=== PATIENT | female | born 1955 | race Caucasian/White ===

== ENCOUNTER → 2017-01-13 | Outpatient (CLI) | payer OTHER ==
[~2017-01-13] MED LIST: ASPIRIN CHEWABL81 MG PO; ATENOLOL100 M1 PO; HYDR25T PO; LEVOFLOXACIN500 MG PO; LISINOPRIL20 MG PO; LYRICA200 M1 PO; Lidex 0.05% Cre15 GM PO; NORVASC10 MG PO; PREPLUS CA-FE1 EACH PO; PRILOSEC20 M1 PO; TRAMADOL HCL50 MG PO; ZOFRAN ODT4 MG SL
== END | disposition home or self-care (01) ==
LOC: LAB 14:30
DX: M25.571 Pain in right ankle and joints of right foot (principal); M25.532 Pain in left wrist; M25.531 Pain in right wrist

== ENCOUNTER → 2017-11-12 | Outpatient (CLI) | payer OTHER | END | disposition home or self-care (01) | LOC: MAMMO 14:50 | DX: Z12.31 Encounter for screening mammogram for malignant neoplasm of breast (principal); M17.0 Bilateral primary osteoarthritis of knee ==

== ENCOUNTER 2018-06-08 00:16 | Inpatient (IN) | payer MEDICARE ==
[~2018-06-08] VITALS: Ht 165.1 cm; Wt 81.7 kg
[2018-06-08] VITALS (7 sets, daily range): BP systolic 102–152; BP diastolic 47–85
--- NOTE | ~2018-06-08 | EKG ---
[place], [place] ELECTROCARDIOGRAM REPORT NAME: LARUA PINEDA UNIT #: [id number] ROOM: 525 DOCTOR: OCHOA DRAFT REPORT BIRTHDATE: [birth year] [facility] Test Date: 2018-06-08 Test Time: 00:55:28 Pat Name: LAURA PINEDA Department: Room: [facility] Gender: F Roll Bucker: Orville Kaiser : 1955 Requested By: BETH PLAZA PA-C Order Number: [id number] Reading MD: Orville Galeano MD Measurements Intervals [place] Rate: 93 P: 72 MN: 176 QRS: -5 QRSD: 107 T: 49 QT: 354 QTc: 441 Interpretive Statements Sinus rhythm Minimal ST depression, lateral leads Electronically Signed On 06-11-2018 15:36:49 PST by Orville Galeano MD CM:EKGRPT:ELECTROCARDIOGRAM REPORT [id number] BETH PLAZA PA-C EPIPHANY DRAFT REPORT BETH PLAZA PA-C
[2018-06-08 01:04] LABS: BASO # 0.1 10*3/uL (0.0-0.1); BASO % 1.1 % (0.0-1.0); EOS # 0.4 10*3/uL (0.0-0.4); EOS % 4.5 % (1.0-4.0); HEMOGLOBIN 14.5 g/dl (12.0-16.0); LYMPH # 3.5 10*3/uL (1.3-4.4); LYMPH % 38.3 % (27.0-41.0); MEAN CELL VOLUME 94.1 fl (81.0-99.0); MEAN CORPUSCULAR HGB 31.7 pg (27.0-31.0); MEAN CORPUSCULAR HGB CONC 33.7 g/dl (33.0-37.0); MEAN PLATELET VOLUME 9.5 fl (9.6-12.3); MONO # 0.6 10*3/uL (0.1-1.0); NEUT # 4.4 10*3/uL (2.3-7.9); PLATELET COUNT AUTOMATED 383 10*3/uL (130-400); RED BLOOD COUNT 4.57 10*6/uL (4.10-5.10); RED CELL DISTRI WIDTH 13.3 % (0-14.5)
--- NOTE | 2018-06-08 01:11 | NUR ---
PT PROVIDED WITH URINE CUP AND IS AWARE WE NEED URINE SAMPLE UNABLE TO PROVIDE ONE AT THIS TIME CALL LIGHT IN REACH
[2018-06-08 01:12] LABS: INTERNATIONAL NORM RATIO 1.1 (2.0-3.5)
[2018-06-08 01:20] LABS: ALBUMIN 3.9 gm/dl (3.1-4.5); ALKALINE PHOSPHATASE 101 U/L (45-117); BUN 59 mg/dl (7-24); CHLORIDE 109 mmol/L (98-107); CREATININE 2.18 mg/dL (0.55-1.02); POTASSIUM 3.7 mmol/L (3.5-5.1); SGOT/AST 15 IU/L (3-35); SGPT/ALT 23 U/L (12-78); SODIUM 136 mmol/L (136-145); TOTAL PROTEIN 8.5 gm/dL (6.4-8.2)
[2018-06-08 01:21] LABS: TROPONIN I < 0.015 ng/ml (<0.045)
[2018-06-08 01:43] LABS: BILIRUBIN NEGATIVE (NEGATIVE); BLOOD NEGATIVE (NEGATIVE); CLARITY SL CLOUDY (CLEAR); COLOR YELLOW (YELLOW); GLUCOSE NEGATIVE (NEGATIVE); KETONE NEGATIVE (NEGATIVE); LEUKO ESTERASE NEGATIVE (NEGATIVE); NITRITE NEGATIVE (NEGATIVE); SPECIFIC GRAVITY 1.015 (1.005-1.030); UROBILINOGEN 0.2 E.U./dl (0.2-1.0)
[2018-06-08 02:01] LABS: BACTERIA 2+; WBC 0-2 wbc/hpf (0-5)
--- NOTE | 2018-06-08 02:32 | NUR ---
A 62, admitted to 5E, under the services of LARRY Velasco DO with a diagnosis of ACUTE RENAL FAILURE. Chief complaint is ACUTE RENAL FAILURE. Patient arrived via bed from ER. Monitor applied. Initial assessment completed. Vital signs taken and recorded. LARRY VELASCO DO notified of admission to the unit. Orders received. See assessment for past medical history, medications and allergies. Patient and/or family oriented to unit. [address] visitation policy reviewed. Clothing/patient valuable form completed. KARENA MITCHELL
[2018-06-08] MEDS ORDERED: AMITRIPTYLINE25 MG PO (03:26)
[2018-06-08] MEDS ORDERED: AMLODIPINE BES2.5 MG PO (03:27)
[2018-06-08] MEDS ORDERED: OMEPRAZOLE D/R20 MG PO (03:29)
[2018-06-08] MEDS ORDERED: LISINOPRIL20 MG PO (03:29)
[2018-06-08] MEDS ORDERED: MELOXICAM15 MG PO (03:30)
[2018-06-08] MEDS ORDERED: VITAMIN D32000 UNI1 PO (03:31)
[2018-06-08] MEDS ORDERED: HYDROCHLOROTH12.5 M3 PO (03:32)
--- NOTE | 2018-06-08 04:48 | NUR ---
PT'S MED REC UPDATED PER THE HOME MEDICATION BOTTLES SHE BROUGHT IN WITH HER. DR. CONRAD CALLED DUE TO THE DIFFERENCE IN THE MEDICATION BOTTLES AND THE CLAIM HISTORY. WAS TOLD TO HAVE MED LIST FAXED FROM HER PHARMACY IN THE MORNING.
[2018-06-08 06:22] LABS: BASO # 0.1 10*3/uL (0.0-0.1); BASO % 1.2 % (0.0-1.0); EOS # 0.2 10*3/uL (0.0-0.4); EOS % 3.2 % (1.0-4.0); HEMATOCRIT 37.8 % (37.0-47.0); HEMOGLOBIN 12.8 g/dl (12.0-16.0); LYMPH # 3.4 10*3/uL (1.3-4.4); LYMPH % 44.6 % (27.0-41.0); MEAN CELL VOLUME 94.3 fl (81.0-99.0); MEAN CORPUSCULAR HGB 31.9 pg (27.0-31.0); MEAN CORPUSCULAR HGB CONC 33.9 g/dl (33.0-37.0); MEAN PLATELET VOLUME 9.3 fl (9.6-12.3); MONO # 0.5 10*3/uL (0.1-1.0); MONO % 6.6 % (3.0-9.0); NEUT # 3.4 10*3/uL (2.3-7.9); NEUT % 44.3 % (47.0-73.0); PLATELET COUNT AUTOMATED 344 10*3/uL (130-400); RED BLOOD COUNT 4.01 10*6/uL (4.10-5.10); RED CELL DISTRI WIDTH 13.3 % (0-14.5); WHITE BLOOD COUNT 7.6 10*3/uL (4.8-10.8)
[2018-06-08 06:26] LABS: ACT PARTIAL THROMBO TIME 25.9 SECONDS (20.8-31.5); INTERNATIONAL NORM RATIO 1.1 (2.0-3.5)
[2018-06-08 06:33] LABS: ALBUMIN 3.3 gm/dl (3.1-4.5); CREATININE 1.86 mg/dL (0.55-1.02); TOTAL PROTEIN 7.5 gm/dL (6.4-8.2)
[2018-06-08 06:40] LABS: FREE T4 1.01 ng/dl (0.76-1.46); THYROID STIM HORMONE (HS) 1.36 uIU/ml (0.358-4.75)
[2018-06-08 07:40] LABS: VITAMIN D, 25-HYDROXY 47.4 ng/mL (30-100)
--- NOTE | 2018-06-08 08:00 | NUR ---
PATIENT HOME MEDICATIONS TAKEN TO PHARMACY.
[2018-06-08] MEDS ORDERED: NORCO 5-325 TA1 EACH PO (08:02)
--- NOTE | 2018-06-08 10:45 | NUR ---
OK TO TAKE MONITOR OFF FOR PATIENT TO TAKE SHOWER PER DR. DURAN.
--- NOTE | 2018-06-08 11:28 | NUR ---
Shift chart check completed.
--- NOTE | 2018-06-08 13:04 | NUR ---
PATIENT STATES THAT ZOFRAN WAS EFFECTIVE FOR NAUSEA. WILL MONITOR.
--- NOTE | 2018-06-08 13:04 | NUR ---
PATIENT C/O NAUSEA AND STOMACH ACHE. ZOFRAN ADMINISTERED PRESCRIBED. WILL MONITOR FOR EFFECTIVENESS.
--- NOTE | 2018-06-08 13:12 | NUR ---
PATIENT STATES THAT SHE NEEDS HER PRILOSEC. DR DURAN CALLED AND TIME CHANGED FOR FIRST DOSE TO NOW. WILL MONITOR.
--- NOTE | 2018-06-08 19:10 | NUR ---
PT AWAKE AND WATCHING TV WHILE LYING IN BED. PT STATES THAT SHE DOES NOT HAVE ANY PAIN OR DISCOMFORT AT THIS TIME. SHE ALSO STATES THAT SHE FEELS THOUGH HER APPETITE IS IMPROVING SOMEWHAT.
--- NOTE | 2018-06-08 19:14 | NUR ---
24 HR CHART CHECK COMPLETE
[2018-06-09] VITALS: BP 115/56
[2018-06-09 07:21] LABS: ALBUMIN 2.9 gm/dl (3.1-4.5); CREATININE 1.46 mg/dL (0.55-1.02); POTASSIUM 4.1 mmol/L (3.5-5.1)
--- NOTE | 2018-06-09 07:47 | NUR ---
Shift chart check completed.
--- NOTE | 2018-06-09 08:00 | NUR ---
VS-STABLE. A+OX3, MARTIR, EQUAL SEAM CHECKER, COOPRATIVE, AND PLEASANT. HEART SOUNDS NORMAL. LUNG SOUNDS CLEAR. BSX4 ABD SOFT, NONTENDER, AND NONDISTENDED. POSTIVE PEDAL PULSES. CAP REFILL<3 SECONDS. NON TENTING SKIN TURGOR. PAIN 0/10 ON THE PAIN SCALE. SKIN WARM AND DRY. WHEN ASKED ABOUT LAST KNOW BOWEL MOVMENT PT STATES "IT'S BEEN ABOUT THREE DAYS". SHUKRI LANDERS SPCHRISTOFERCC
--- NOTE | 2018-06-09 08:00 | NUR ---
PATIENT AWAKE AND ALERT SITTING UP AND EATING BREAKFAST THIS MORNING. STATES THAT SHE IS FEELING MUCH BETTER TODAY. SEE ASSESSMENT. PATIENT HAS NO COMPLAINTS AT THIS TIME. BED ALARM ON AND CALL LIGHT WITHIN REACH.
[2018-06-09 08:09] VITALS: BP 129/67
[2018-06-09 10:15] VITALS: BP 132/64
--- NOTE | 2018-06-09 11:41 | NUR ---
CASE MANGER IN TO SEE PT COOPRATIVE AND PLEASANT WILL CONTINUE TO ASSESS. SHUKRI LANDERS SPNRCC
--- NOTE | 2018-06-09 11:41 | NUR ---
Fourth Hand in to talk to patient. Patient states lives at HOME with ALONE. There are BASEMENT steps in the home. Physician: NONE AT THIS TIME [facility]: [facility] Home health services: NONE Patient's level of ADLs: MINIMAL ASSIST Patient has working utilities: YES DME: CANE Follow-up physician's appointment after d/c: WILL BE MADE BY HOSPITALIST NURSE DIRECTOR ON [employer] Does patient want to access PORTAL?: NO Discharge plan PT STATES SHE LIVES ALONE IS MOSTLY INDEPENDENT IN CARE. STATES SHE HAS A CANE AT HOME BUT WOULD LIKE TO HAVE A WALKER, SHE ALSO WANTS HOME HEALTH. WILL CONTINUE TO FOLLOW. PT STATES SHE WILL HAVE A RIDE HOME. . FLAKITO SEQUEIRA
[2018-06-09 12:58] VITALS: BP 123/45
--- NOTE | 2018-06-09 13:30 | NUR ---
PHYSICAL THERAPY PAtient evaluated on 5, full evaluation to follow. Continue with PT as per plan of care with fall and acute debility precautions. Will require SNF but refuses. Home with home health Rn, PT and aides prn. PAtient is moderate complexity via chart review, tests and evaluation: 63142. Thank you for this referral. Vilma Vizcaino,PT
--- NOTE | 2018-06-09 15:49 | NUR ---
REFERRAL SENT TO [facility], [facility], THEY ARE CHECKING TO SEE IF THEY ACCEPT PT INSURANCE.
[2018-06-09 16:00] VITALS: BP 125/56
[2018-06-09 20:00] VITALS: BP 111/96; BP 128/72
--- NOTE | 2018-06-09 20:01 | NUR ---
24 HR chart check completed.
--- NOTE | 2018-06-09 21:00 | NUR ---
RESTING IN BED WATCHING TV WITH NO DISTRESS NOTED. RESPIRATIONS EASY. LUNGS DIMINISHED, CLEAR. PULSE OX 100% RA. OFFERED AND EDUCATED REAGRDING TEDS, DECLINED. IV FLUIDS INFUSING PER ORDER. CALL LIGHT WITHIN REACH. NO VOICED COMPLAINTS
[2018-06-10] VITALS: BP 138/60
--- NOTE | 2018-06-10 | NUR ---
SLEEPING. NO DISTRESS NOTED. RESPIRATIONS EASY. IV FLUID MAINTAINED. CALL LIGHT WITHIN REACH
--- NOTE | 2018-06-10 04:00 | NUR ---
AWAKE, WATCHING TV. NO DISTRESS NOTED. IV FLUIDS MAINTAINED. CALL LIGHT WITHIN REACH. NO VOICED COMPLAINTS
[2018-06-10 06:46] LABS: CREATININE 1.26 mg/dL (0.55-1.02); PHOSPHOROUS 2.6 mg/dL (2.5-4.9); POTASSIUM 4.1 mmol/L (3.5-5.1)
[2018-06-10 08:00] VITALS: BP 140/62
--- NOTE | 2018-06-10 08:00 | NUR ---
Patient resting quietly with no c/o discomfort. Respirations easy and regular. Vital signs stable. No overt distress. CYNDI RIDDLE R
--- NOTE | 2018-06-10 10:30 | NUR ---
PHYSICAL THERAPY Patient was resting comfortably in bed this am upon therapist arrival and reported she did not sleep well last night, including several bouts of low back cramps. Patient requested to be seen this pm so she can remain in bed and rest this morning. Will continue per POC as tolerated. Jack Bryant, CERTIFIED MEDICAL AIDE
[2018-06-10 12:00] VITALS: BP 144/71
--- NOTE | 2018-06-10 12:27 | NUR ---
PHYSICAL THERAPY CO-SIGN I approve of the Phyical Therapy notes written above. SHARA ARGUETA PT
[2018-06-10] MEDS ORDERED: SIMVASTATIN20 MG PO (13:07)
[2018-06-10] MEDS ORDERED: WALKER DEVI (13:08)
--- NOTE | 2018-06-10 13:10 | NUR ---
OT NOTE Pt was seen this P.M. 1:1 for 24 minute OT session. Upon arrival pt was sitting upright in recliner with no body alarm activated, pt identified by name and . Pt had no complaints at this time. Pt completed sit to stand transfer from chair level with SBA. Attempted to complete functional mobility around the room with use of AD and pt declined stating she is fine without it. Pt completed functional mobility into the bathroom with CGA with episodes of being unsteady requiring Marianne to correct. There she transferred on/off standard commode with CGA and use of grab bar for UE support. Pt then stood sink side while washing her hands with CGA, pt had LOB backwards at the sink while standing without UE support that required Marianne to correct. Pt then returned to the recliner where she completed BUE towel exercises over all planes of motion for 1 X 10 to increase UE strength needed for increased I in self care tasks and functional transfers. Pt was left sitting upright in recliner with call light in hand, tray table in place, and phone in reach. Continue with POC as able. OSITO Baldwin/Rochelle
--- NOTE | 2018-06-10 15:46 | NUR ---
ORDER FOR [facility].
--- NOTE | 2018-06-10 16:00 | NUR ---
Discharge instructions reviewed with patient/family. Patient receptive and verbalizes understanding. Follow-up care arranged. Written instructions given to patient/family. CYNDI RIDDLE
--- NOTE | 2018-06-10 16:05 | NUR ---
HOME MEDS RETURNED FROM PHARMACY.
--- NOTE | 2018-06-10 16:23 | NUR ---
[facility] INFORMED THAT PT IS BEING DISCHARGE TODAY.
--- NOTE | 2018-06-11 07:58 | NUR ---
OCCUPATIONAL THERAPY CO-SIGN I approve of the Occupational Therapy notes written above. HILDA REAVES OTR/Rochelle
== END 2018-06-10 16:00 | disposition home health service (06) | DRG 640 ==
LOC: ED 00:16 → EDHOLD 02:15 → 5E 02:15
PROVIDERS: Internal Medicine; Physician Assistant; ADMIT Internal Medicine
DX: E86.0 Dehydration (principal); N17.0 Acute kidney failure with tubular necrosis; E44.0 Moderate protein-calorie malnutrition; E87.2 Acidosis; E87.8 Other disorders of electrolyte and fluid balance, not elsewhere classified; R26.2 Difficulty in walking, not elsewhere classified; G62.9 Polyneuropathy, unspecified; E78.2 Mixed hyperlipidemia; E86.1 Hypovolemia; R00.0 Tachycardia, unspecified; R73.9 Hyperglycemia, unspecified; I10 Essential (primary) hypertension; K21.9 Gastro-esophageal reflux disease without esophagitis; F32.9 Major depressive disorder, single episode, unspecified; Z88.1 Allergy status to other antibiotic agents; Z88.0 Allergy status to penicillin; Z88.2 Allergy status to sulfonamides; Z90.710 Acquired absence of both cervix and uterus; Z87.891 Personal history of nicotine dependence; Z82.49 Family history of ischemic heart disease and other diseases of the circulatory system; Z79.899 Other long term (current) drug therapy; Z79.82 Long term (current) use of aspirin; Z68.29 Body mass index [BMI] 29.0-29.9, adult

== ENCOUNTER → 2018-06-19 | Outpatient (CLI) | payer MEDICARE ==
[~2018-06-19] MED LIST changes: +AMITRIPTYLINE25 MG PO; +AMLODIPINE BES2.5 MG PO; +HYDROCHLOROTH12.5 M3 PO; +MELOXICAM15 MG PO; +NORCO 5-325 TA1 EACH PO; +OMEPRAZOLE D/R20 MG PO; +SIMVASTATIN20 MG PO; +VITAMIN D32000 UNI1 PO; +WALKER DEVI
[2018-06-19 16:00] LABS: CREATININE 1.52 mg/dL (0.55-1.02); POTASSIUM 3.8 mmol/L (3.5-5.1)
== END | disposition home or self-care (01) ==
LOC: RESCLI 01:08 → LAB 01:08 → RESCLI 16:51
PROVIDERS: Student in an Organized Health Care Education/Training Program
DX: N17.9 Acute kidney failure, unspecified (principal); G72.9 Myopathy, unspecified

== ENCOUNTER → 2019-06-10 | Outpatient (CLI) | payer OTHER ==
[2019-06-10 17:13] LABS: BASO # 0.2 10*3/uL (0.0-0.1); BASO % 1.9 % (0.0-1.0); EOS # 0.2 10*3/uL (0.0-0.4); EOS % 2.7 % (1.0-4.0); HEMOGLOBIN 14.3 g/dl (12.0-16.0); LYMPH # 4.2 10*3/uL (1.3-4.4); LYMPH % 48.6 % (27.0-41.0); MEAN CELL VOLUME 94.9 fl (81.0-99.0); MEAN CORPUSCULAR HGB 31.6 pg (27.0-31.0); MEAN CORPUSCULAR HGB CONC 33.3 g/dl (33.0-37.0); MEAN PLATELET VOLUME 8.5 fl (9.6-12.3); MONO # 0.7 10*3/uL (0.1-1.0); MONO % 7.5 % (3.0-9.0); NEUT # 3.4 10*3/uL (2.3-7.9); NEUT % 39.1 % (47.0-73.0); PLATELET COUNT AUTOMATED 484 10*3/uL (130-400); RED BLOOD COUNT 4.53 10*6/uL (4.10-5.10); RED CELL DISTRI WIDTH 13.4 % (0-14.5); WHITE BLOOD COUNT 8.6 10*3/uL (4.8-10.8)
[2019-06-10 17:42] LABS: ALBUMIN 3.7 gm/dl (3.1-4.5); CREATININE 1.25 mg/dL (0.55-1.02); POTASSIUM 4.4 mmol/L (3.5-5.1)
[2019-06-10 17:50] LABS: TOTAL PROTEIN 8.3 gm/dL (6.4-8.2)
== END | disposition home or self-care (01) ==
LOC: LAB 16:30
PROVIDERS: Nurse Practitioner Primary Care
DX: E55.9 Vitamin D deficiency, unspecified (principal); I10 Essential (primary) hypertension; E78.1 Pure hyperglyceridemia; Z79.899 Other long term (current) drug therapy

== ENCOUNTER → 2019-06-24 | Outpatient (CLI) | payer OTHER ==
[2019-06-24 16:46] LABS: HEMATOCRIT 43.5 % (37.0-47.0); HEMOGLOBIN 14.1 g/dl (12.0-16.0); MEAN CELL VOLUME 95.4 fl (81.0-99.0); MEAN CORPUSCULAR HGB 30.9 pg (27.0-31.0); MEAN CORPUSCULAR HGB CONC 32.4 g/dl (33.0-37.0); MEAN PLATELET VOLUME 8.7 fl (9.6-12.3); PLATELET COUNT AUTOMATED 420 10*3/uL (130-400); RED BLOOD COUNT 4.56 10*6/uL (4.10-5.10); RED CELL DISTRI WIDTH 13.7 % (0-14.5); WHITE BLOOD COUNT 9.4 10*3/uL (4.8-10.8)
[2019-06-24 17:33] LABS: ATYPICAL LYMPHS 11 % (0-0); BASOPHILS 1 % (0-1); TOTAL CELLS COUNTED 100 #CELLS
[2019-06-24 17:34] LABS: PLATELET SUFFICIENCY NORMAL (NORMAL)
== END | disposition home or self-care (01) ==
LOC: LAB 16:09
PROVIDERS: Nurse Practitioner Primary Care
DX: D72.820 Lymphocytosis (symptomatic) (principal); Z79.899 Other long term (current) drug therapy

== ENCOUNTER → 2019-12-15 | Outpatient (CLI) | payer OTHER | END | disposition home or self-care (01) | LOC: MAMMO 11-30 08:00 | PROVIDERS: ATTEND Nurse Practitioner Primary Care | DX: Z12.31 Encounter for screening mammogram for malignant neoplasm of breast (principal) ==

== ENCOUNTER → 2020-02-29 | Outpatient (CLI) | payer OTHER | END | disposition home or self-care (01) | LOC: RAD 02-25 13:19 | PROVIDERS: ATTEND Nurse Practitioner Primary Care | DX: Z78.0 Asymptomatic menopausal state (principal) ==

== ENCOUNTER → 2020-10-07 | Outpatient (CLI) | payer BC | END | disposition home or self-care (01) | LOC: RAD 11:02 | PROVIDERS: ATTEND Anesthesiology | DX: M51.36 Other intervertebral disc degeneration, lumbar region (principal); M85.88 Other specified disorders of bone density and structure, other site; M25.78 Osteophyte, vertebrae ==